=== PATIENT | male | born 1980 | race American Indian/Alaskan Native ===

== ENCOUNTER 2020-10-06 18:17 | Emergency (ER) | payer MEDICAID, OTHER ==
[2020-10-06] MEDS ORDERED: Doxycycline Monohydrate 100 MG Cap PO ONE (18:18)
[2020-10-06 18:30] VITALS: BP 130/75; PULSE 117
[2020-10-06 20:48] LABS: ANION GAP 13.2 mEq/L (7-13); CHLORIDE,CL 105 mmol/L (98-107); SODIUM,NA 140 mmol/L (136-145)
[2020-10-06] MEDS ORDERED: Iopamidol 612 MG/ML 100 ML Bottle IVPUSH ONE (20:50)
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
[2020-10-06 22:22] LABS: AMPHETAMINES,URINE POSITIVE (NEGATIVE); BARBITURATES,URINE NEGATIVE (NEGATIVE); BENZODIAZEPINE,URINE NEGATIVE (NEGATIVE); MDMA (ECSTASY), URINE POSITIVE (NEGATIVE); METHADONE,URINE NEGATIVE (NEGATIVE); METHAMPHETAMINES,URINE POSITIVE (NEGATIVE); OPIATES,URINE NEGATIVE (NEGATIVE); OXYCODONE,URINE NEGATIVE (NEGATIVE); PHENCYCLIDINE,URINE NEGATIVE (NEGATIVE); TCA,URINE NEGATIVE (NEGATIVE)
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
[2020-10-06] MEDS ORDERED: Doxycycline Monohydrate 100 MG Cap ONE (23:26)
[2020-10-06] MEDS ORDERED: Mupirocin Oint 22 GM Tube ONE (23:26)
== END 2020-10-06 23:45 ==
LOC: DL.ED 18:17
DX: S06.0X9A Concussion with loss of consciousness of unspecified duration, initial encounter (principal); S32.491A Other specified fracture of right acetabulum, initial encounter for closed fracture; S01.01XA Laceration without foreign body of scalp, initial encounter; S30.0XXA Contusion of lower back and pelvis, initial encounter; F15.10 Other stimulant abuse, uncomplicated; Z88.5 Allergy status to narcotic agent; Y04.0XXA Assault by unarmed brawl or fight, initial encounter
CPT/HCPCS: 36415; 70450; 71260; 72125; 73551; 74177; 80053; 80305; 82150; 83690; 85025; 99284; A9270; Q9967